=== PATIENT | male | born 1980 | race Caucasian/White ===

== ENCOUNTER 2016-04-25 16:10 | Emergency (ER) | payer OTHER ==
[~2016-04-25] VITALS: Ht 182.9 cm; Wt 69.6 kg
[2016-04-25 16:20] VITALS: TEMP 36.7; Ht 182.9 cm; Wt 69.6 kg
[2016-04-25] MEDS ORDERED: AMPICILLIN/SULBACTAM SOD INJ 3,000 MG in SODIUM CHLORIDE 0.9% 100ML 100 ML IV STA (16:37)
[2016-04-25] MEDS ORDERED: MoRPHine SULFATE 4 MG/ML 1 ML CARP\\VIAL IV STA (16:37)
[2016-04-25] MEDS ORDERED: OPTIRAY 320 IV PRN (16:45)
[2016-04-25 17:07] LABS: BASO % 0.5 %; BASO ABS # 0.04 K/uL (0-0.2); COMPLETE YES; EOS % 2.7 %; HEMATOCRIT 45.8 % (42-52); IG% 0.2 %; LYMPH % 22.7 %; LYMPH ABS # 1.82 K/uL (1.2-3.4); MEAN CELL VOLUME 87.4 fL (80-100); MEAN CORPUSCULAR HEMOGLOBIN 30.7 pg (25-34); MEAN CORPUSCULAR HGB CONC 35.2 g/dl (32-36); MEAN PLATELET VOLUME 11.4 fL (7.4-10.4); MONO % 8.7 %; NEUT % 65.2 %; PLATELET COUNT 180 K/uL (130-400); RED BLOOD COUNT 5.24 M/uL (4.7-6.1); WHITE BLOOD COUNT 8.02 K/uL (4.8-10.8)
[2016-04-25 17:28] LABS: BUN/CREATININE RATIO 5.3 (10-20); CALCIUM 8.7 mg/dl (8.5-10.1); CREATININE 0.91 mg/dl (0.60-1.40); POTASSIUM 3.6 mmol/L (3.5-5.1)
--- NOTE | 2016-04-25 18:02 | DIAGNOSTIC IMAGING REPORT ---
CT FACIAL-MAXILLOFACIAL WITH CT DOSE: 143.69 mGycm CLINICAL HISTORY: Left-sided facial swelling. Infected tooth. TECHNIQUE: A maxillofacial CT was performed following intravenous injection of 119 cc Optiray 320 IV. Coronal and sagittal reformats were viewed. COMPARISON STUDY: None. FINDINGS: Visualized portions of the intracranial contents are unremarkable Global. There is mild mucosal thickening of the sinuses. Multiple dental caries are present. There is moderate left facial infiltration suggestive of cellulitis. Multiple left maxillary dental caries could account for this infectious process. The exact source is difficult to delineate on this exam. No abscess is identified within the soft tissues. Airway is patent. Epiglottis is normal. There are several prominent left upper cervical lymph nodes. IMPRESSION: Left facial and upper neck infiltration suggestive of cellulitis. No abscess. This infectious process is odontogenic in etiology. The exact source for this odontogenic process is difficult to determine on this exam given numerous dental caries. Electronically signed by: Ildefonso Ch M.D. 04/25/2016 6:00 PM Dictated Date/Time: 04/25/2016 5:50 PM
[2016-04-25] MEDS ORDERED: OXYC-57 PO (18:27)
[2016-04-25] MEDS ORDERED: AMOX875T PO (18:27)
--- NOTE | 2016-04-25 18:29 | EMERGENCY ROOM VISIT NOTE ---
History First contact with patient: 16:29 Chief Complaint: DENTAL PAIN Stated Complaint: INFECTED TOOTH Nursing Triage Summary: dental pain pt moving to area from [place] and does not have dentist in area pt has dental pain left top of mouth face is swollen History of Present Illness The patient is a 35 year old male who presents to the Emergency Room with complaints of left dental pain and facial swelling. The patient reports that he developed pain in his left upper teeth 2 days ago. He states that when he woke up this morning, he noticed swelling in the left side of the face. The swelling extends up into the left eye. He does report he has had a history of issues with his teeth. He recently moved from another [place] and is in the process of getting insurance that up. He plans to see a primary care provider and a dentist after he gets his insurance. He has been taking Tylenol and ibuprofen without relief. He rates his overall discomfort at 8/10. He denies any drainage from the teeth, difficulty opening his mouth, fevers or chills. He denies any swelling or pain in the neck. Review of Systems A complete 10-point Review of Systems was discussed with the patient, with pertinent positives and negatives listed in the History of Present Illness. All remaining Review of Systems questions can be considered negative unless otherwise specified. Past Medical/Surgical History Medical Problems: (1) No known health problems Family History No pertinent family history Social History Smoking Status: Current Every Day Smoker Alcohol Use: none Drug Use: none Housing Status: lives with friends Occupation Status: employed Current/Historical Medications Scheduled Amoxicillin & Pot Clavulanate (Augmentin 875-125 mg), 1 TAB PO BID Scheduled PRN Oxycodone/Acetaminophen 5MG/325MG (Percocet 5MG/325MG), 1-2 TABS PO Q6H PRN for Pain Allergies Coded Allergies: No Known Allergies (Unverified , 12/01/15) Physical Exam Vital Signs Date Time Temp Pulse Resp B/P Pulse Ox O2 Delivery O2 Flow Rate FiO2 04/25/16 18:54 85 20 145/78 99 04/25/16 17:26 77 16 129/104 99 Room Air 04/25/16 16:20 36.7 80 20 147/97 99 Room Air Physical Exam VITALS: Vitals are noted on the nurse's note and reviewed by myself. Vital signs stable. GENERAL: This is a 35-year-old male, in no acute distress, nondiaphoretic, well- developed well-nourished. SKIN: Capillary reflex less than 2 seconds. HEENT: Normocephalic. PERRLA. EOMI. Nares patent. Mucous membranes moist. There is a moderate amount of swelling of the left upper jaw. There is no erythema or warmth. There is no fluctuance to suggest abscess. Neck is supple without nuchal rigidity. No lymphadenopathy. HEART: Regular rate and rhythm without murmurs gallops or rubs. LUNGS: Clear to auscultation bilaterally without wheezes, rales or rhonchi. No retractions or accessory muscle use. NEURO: Patient was alert and oriented to person place and time. Medical Decision & Procedures ER Provider Diagnostic Interpretation: CT FACIAL-MAXILLOFACIAL WITH CT DOSE: 143.69 mGycm CLINICAL HISTORY: Left-sided facial swelling. Infected tooth. TECHNIQUE: A maxillofacial CT was performed following intravenous injection of 119 cc Optiray 320 IV. Coronal and sagittal reformats were viewed. COMPARISON STUDY: None. FINDINGS: Visualized portions of the intracranial contents are unremarkable Global. There is mild mucosal thickening of the sinuses. Multiple dental caries are present. There is moderate left facial infiltration suggestive of cellulitis. Multiple left maxillary dental caries could account for this infectious process. The exact source is difficult to delineate on this exam. No abscess is identified within the soft tissues. Airway is patent. Epiglottis is normal. There are several prominent left upper cervical lymph nodes. IMPRESSION: Left facial and upper neck infiltration suggestive of cellulitis. No abscess. This infectious process is odontogenic in etiology. The exact source for this odontogenic process is difficult to determine on this exam given numerous dental caries. Laboratory Results 04/25/16 16:52 Red Blood Count 5.24, Mean Corpuscular Volume 87.4, Mean Corpuscular Hemoglobin 30.7, Mean Corpuscular Hemoglobin Concent 35.2, Mean Platelet Volume 11.4, Neutrophils (%) (Auto) 65.2, Lymphocytes (%) (Auto) 22.7, Monocytes (%) (Auto) 8.7, Eosinophils (%) (Auto) 2.7, Basophils (%) (Auto) 0.5, Neutrophils # (Auto) 5.22, Lymphocytes # (Auto) 1.82, Monocytes # (Auto) 0.70, Eosinophils # (Auto) 0.22, Basophils # (Auto) 0.04 04/25/16 16:52 Test 04/25/16 16:52 White Blood Count 8.02 K/uL (4.8-10.8) Red Blood Count 5.24 M/uL (4.7-6.1) Hemoglobin 16.1 g/dL (14.0-18.0) Hematocrit 45.8 % (42-52) Mean Corpuscular Volume 87.4 fL (80-100) Mean Corpuscular Hemoglobin 30.7 pg (25-34) Mean Corpuscular Hemoglobin Concent 35.2 g/dl (32-36) Platelet Count 180 K/uL (130-400) Mean Platelet Volume 11.4 fL (7.4-10.4) Neutrophils (%) (Auto) 65.2 % Lymphocytes (%) (Auto) 22.7 % Monocytes (%) (Auto) 8.7 % Eosinophils (%) (Auto) 2.7 % Basophils (%) (Auto) 0.5 % Neutrophils # (Auto) 5.22 K/uL (1.4-6.5) Lymphocytes # (Auto) 1.82 K/uL (1.2-3.4) Monocytes # (Auto) 0.70 K/uL (0.11-0.59) Eosinophils # (Auto) 0.22 K/uL (0-0.5) Basophils # (Auto) 0.04 K/uL (0-0.2) RDW Standard Deviation 38.3 fL (36.4-46.3) RDW Coefficient of Variation 12.0 % (11.5-14.5) Immature Granulocyte % (Auto) 0.2 % Immature Granulocyte # (Auto) 0.02 K/uL (0.00-0.02) Anion Gap 9.0 mmol/L (3-11) Est Creatinine Clear Calc Drug Dose 113.7 ml/min Estimated GFR () 127.9 Estimated GFR (Non- 110.3 BUN/Creatinine Ratio 5.3 (10-20) Calcium Level 8.7 mg/dl (8.5-10.1) Medications Administered Medications (Trade) Dose Ordered Sig/Zach Route Start Time Stop Time Status Last Admin Dose Admin Ampicillin Sodium/ Sulbactam Sodium/ Sodium Chloride (Unasyn Inj/Nss 100ml) 108 ml @ 200 mls/hr NOW STAT IV 04/25/16 16:37 04/25/16 17:09 DC 04/25/16 17:23 200 MLS/HR Morphine Sulfate (MoRPHine SULFATE INJ) 4 mg NOW STAT IV 04/25/16 16:37 04/25/16 16:40 DC 04/25/16 16:59 4 MG Medical Decision Differential diagnosis includes facial cellulitis, dental abscess, Chalino angina , among others. The patient was evaluated as above. Labs were drawn and IV access was obtained. Imaging studies were performed and read by radiology as above. The patient was medicated with 3 g Unasyn IV and formally grams morphine IV. The patient was reassessed multiple times during their stay in the emergency department and remained in stable condition. The patient is a 35-year-old male who presents today complaining of left sided facial swelling and dental pain. Labs revealed no leukocytosis. The patient is afebrile. As the patient did have a moderate amount of swelling, a CT scan was performed. This did show evidence of a facial cellulitis. There is no drainable abscess at this time. The patient will be placed on Augmentin. He was given a prescription for pain medication. He understands that he will need to follow up with a dentist or oral surgeon for definitive treatment. He should return with worsening facial swelling, fevers, swelling in the neck or difficulty swallowing. Based on the patient's presentation, lab results, and imaging studies, I feel the patient is stable for outpatient treatment. Discharge instructions were reviewed with the patient. The patient verbalized understanding of my assessment and treatment plan and was discharged home in good condition. Impression Primary Impression: Facial cellulitis Departure Information Dispostion Home / Self-Care Condition GOOD Prescriptions Oxycodone/Acetaminophen 5MG/325MG (PERCOCET 5MG/325MG) Tab 1-2 TABS PO Q6H Y for Pain, #20 TAB For Initial Treatment Prov: Angelica Melara PA-C 04/25/16 Amoxicillin & Pot Clavulanate (Augmentin 875-125 mg) 1 Tab Tab 1 TAB PO BID for 14 Days, #28 TAB Prov: Angelica Melara PA-C 04/25/16 Referrals No Doctor, Assigned (PCP) Patient Instructions A Signature Page, My [facility] Additional Instructions You have been treated in the Emergency Department for facial cellulitis. You have received pain medicine in the emergency department which impairs your ability to operate a vehicle. It is illegal for you to drive after receiving these medicines. You have been prescribed Percocet to be used for pain control. This is a narcotic medication. You cannot drive or consume alcohol while on this medicine. This medicine should only be used for pain that cannot be controlled with [id number] pain medicines. You were prescribed and Augmentin to be taken as prescribed. This is an antibiotic. All antibiotics have the potential to cause diarrhea. Stop this medication and contact a medical provider if you were to develop any significant adverse side effects including: wheezing, shortness of breath, passing out, vomiting, or a diffuse rash. Always take antibiotics as directed and COMPLETE the ENTIRE course regardless of the improvement of your symptoms. For pain control, you can use the following [id number] medicines (if >12 yo): - Regular strength (325mg/tab) Tylenol (acetaminophen) 2 tabs every 4-6 hours as needed. Do not exceed 12 tablets in a 24 hour period. Avoid taking more than 4 grams (4000 mg) of Tylenol per day. This includes any other sources of acetaminophen you may take on a regular basis. - Regular strength (200 mg/tab) Advil (ibuprofen) 1-2 tabs every 4-6 hours as needed. Do not exceed a dose of 3200 mg per day. Refrain from smoking cigarettes or using chewing tobacco until you have been evaluated by your dentist. Keeping beverages lukewarm and consuming soft foods can decrease your pain. Warm compresses over the affected area may offer some relief. You MUST seek evaluation of your dental pain by a dentist following your visit to the Emergency Department. The Emergency Department is not capable of treating dental issues long-term. You should call your dentist as soon as possible to make an appointment for evaluation of your dental pain. Return to the emergency department if you develop the following symptoms despite treatment course outlined above: fever, intractable pain, increased redness, swelling, or purulent discharge.
[2016-04-25 18:54] VITALS: BP 145/78; PULSE 85; O2SAT 99
== END 2016-04-25 18:57 | disposition home or self-care (01) ==
LOC: C.EDB 16:11 → C.EDD 18:57
DX: L03.211 Cellulitis of face (principal); K08.89 Other specified disorders of teeth and supporting structures; K02.9 Dental caries, unspecified; F17.200 Nicotine dependence, unspecified, uncomplicated